=== PATIENT | female | born 1955 | race Caucasian/White ===

== ENCOUNTER 2022-05-16 00:55 | Emergency (ER) | payer MEDICARE, OTHER ==
[2022-05-16] MEDS ORDERED: Lidocaine 1% (PF) 30 ML VIAL ONE (02:37)
[2022-05-16] MEDS ORDERED: Bacitracin 1 PK ONE (03:54)
== END 2022-05-16 03:58 | disposition home or self-care (01) ==
LOC: MADERS 00:55
DX: S61.213A Laceration without foreign body of left middle finger without damage to nail, initial encounter (principal); E03.9 Hypothyroidism, unspecified; I10 Essential (primary) hypertension; E78.00 Pure hypercholesterolemia, unspecified; W26.8XXA Contact with other sharp object(s), not elsewhere classified, initial encounter; Z79.899 Other long term (current) drug therapy
CPT/HCPCS: 12001; J2001